=== PATIENT | female | born 1985 | race American Indian/Alaskan Native ===

== ENCOUNTER 2021-05-03 20:18 | Emergency (ER) | payer SELFPAY ==
[2021-05-03 21:44] VITALS: BP 160/108
== END 2021-05-03 21:44 | disposition left against medical advice (07) ==
LOC: ED 20:18
DX: N93.9 Abnormal uterine and vaginal bleeding, unspecified (principal); Z53.21 Procedure and treatment not carried out due to patient leaving prior to being seen by health care provider